=== PATIENT | male | born 1970 | race African-American/Black ===

== ENCOUNTER 2016-12-03 21:04 | Emergency (ER) | payer SELFPAY ==
[~2016-12-03] VITALS: Ht 180.3 cm; Wt 93.4 kg
[2016-12-03] MEDS ORDERED: NAPROSYN500 MG PO (22:42)
[2016-12-03 23:18] VITALS: BP 120/85
== END 2016-12-03 23:18 | disposition home or self-care (01) | DRG 558 ==
LOC: ED 21:04
DX: M70.61 Trochanteric bursitis, right hip (principal); F17.210 Nicotine dependence, cigarettes, uncomplicated; J45.909 Unspecified asthma, uncomplicated

== ENCOUNTER 2017-04-01 08:43 | Emergency (ER) | payer SELFPAY ==
[~2017-04-01] VITALS: Ht 180.3 cm; Wt 80.0 kg
[~2017-04-01 08:43] MED LIST: NAPROSYN500 MG PO
[2017-04-01] MEDS ORDERED: ZITHROMAX250 MG PO (09:30)
[2017-04-01] MEDS ORDERED: VENTOLIN HFA IN (09:30)
[2017-04-01] MEDS ORDERED: MOTRIN800 MG PO (09:30)
[2017-04-01] MEDS ORDERED: PREDNISONE50 MG PO (09:30)
[2017-04-01 09:57] LABS: INFLUENZA A NONE DETECTED (NONE DETECT); INFLUENZA B NONE DETECTED (NONE DETECT)
[2017-04-01 10:14] VITALS: BP 134/56
== END 2017-04-01 10:14 | disposition home or self-care (01) | DRG 203 ==
LOC: ED 08:43
PROVIDERS: Emergency Medicine
DX: J40 Bronchitis, not specified as acute or chronic (principal); M79.1 Myalgia; R05 Cough; R09.81 Nasal congestion; Z72.0 Tobacco use; R50.9 Fever, unspecified; R06.2 Wheezing; R09.89 Other specified symptoms and signs involving the circulatory and respiratory systems

== ENCOUNTER 2018-02-22 12:58 | Emergency (ER) | payer SELFPAY ==
[~2018-02-22] VITALS: Ht 180.3 cm; Wt 93.2 kg
[~2018-02-22 12:58] MED LIST changes: +MOTRIN800 MG PO; +PREDNISONE50 MG PO; +VENTOLIN HFA IN; +ZITHROMAX250 MG PO
[2018-02-22 14:18] LABS: HEMATOCRIT 43.9 % (39.0-50.0); HEMOGLOBIN 15.2 g/dl (14.0-18.0); IMMATURE GRANULOCYTES 0.3 % (0.0-5.0); MEAN CELL VOLUME 74.3 fL CALC (80.0-100.0); MEAN CORPUSCULAR HGB 25.7 pG CALC (26.0-32.0); MEAN CORPUSCULAR HGB CONC 34.6 g/L CALC (32.0-36.0); NEUT# 4.19 thou/uL (1.82-7.42); RED BLOOD COUNT 5.91 mill/uL (4.70-6.10); RED CELL DISTRI WIDTH 13.6 % (11.5-15.5)
[2018-02-22 14:38] LABS: ALBUMIN 4.4 g/dL (3.2-5.0); ALKALINE PHOSPHATASE 46 u/l (38-126); ANION GAP 14 (6-22 (CALC)); BILIRUBIN, TOTAL 0.9 mg/dL (0.0-1.4); BUN 18 mg/dL (9-20); BUN/CREATININE RATIO 14 (12-20 (CALC)); CARBON DIOXIDE 24 mmol/l (22-30); CHLORIDE 105 mmol/l (95-108); CREATININE 1.2 mg/dL (0.7-1.3); GFR > 60 ML/MIN (>=60 (CALC)); GFR FOR AFR.AMER. > 60 ML/MIN (>=60 (CALC)); LIPASE 70 u/l (23-300); POTASSIUM 4.1 mmol/l (3.5-5.1); SGOT/AST 23 u/l (17-59); SODIUM 139 mmol/l (137-146); TOTAL PROTEIN 7.7 g/dL (6.3-8.2)
[2018-02-22] MEDS ORDERED: PROTONIX40 M2 PO (14:49)
[2018-02-22] MEDS ORDERED: ZOFRAN8 MG PO (14:49)
[2018-02-22 15:07] VITALS: BP 160/94
== END 2018-02-22 15:17 | disposition home or self-care (01) | DRG 392 ==
LOC: ED 12:58
PROVIDERS: Emergency Medicine
DX: R10.13 Epigastric pain (principal); R11.2 Nausea with vomiting, unspecified; F17.210 Nicotine dependence, cigarettes, uncomplicated

== ENCOUNTER 2020-01-11 11:09 | Observation (INO) | payer SELFPAY ==
[~2020-01-11] VITALS: Ht 180.3 cm; Wt 84.0 kg
[~2020-01-11 11:09] MED LIST changes: +PROTONIX40 M2 PO; +ZOFRAN8 MG PO
--- NOTE | 2020-01-11 13:04 | NUR ---
PT TO ROOM FOR EXAM
[2020-01-11 13:37] LABS: HEMOGLOBIN 15.9 g/dl (14.0-18.0); IMMATURE GRANULOCYTES 0.4 % (0.0-5.0); MEAN CORPUSCULAR HGB 25.4 pG CALC (26.0-32.0); MEAN CORPUSCULAR HGB CONC 33.8 g/dL CAL (32.0-36.0); NEUT# 3.44 thou/uL (1.82-7.42); RED BLOOD COUNT 6.27 mill/uL (4.70-6.10); RED CELL DISTRI WIDTH 14.1 % (11.5-15.5)
--- NOTE | 2020-01-11 13:44 | NUR ---
PT RESTING QUIETLY ON STRETSCHER, NO COMPLAINTS AT THIS TIME
[2020-01-11 13:55] LABS: ALBUMIN 4.9 g/dL (3.2-5.0); ALKALINE PHOSPHATASE 50 u/l (38-126); ANION GAP 16 (6-22 (CALC)); BUN 17 mg/dL (9-20); BUN/CREATININE RATIO 15 (12-20 (CALC)); CARBON DIOXIDE 22 mmol/l (22-30); CHLORIDE 106 mmol/l (95-108); CREATININE 1.1 mg/dL (0.7-1.3); GFR > 60 ML/MIN (>=60 (CALC)); GFR FOR AFR.AMER. > 60 ML/MIN (>=60 (CALC)); POTASSIUM 4.6 mmol/l (3.5-5.1); SGOT/AST 30 u/l (17-59); SODIUM 139 mmol/l (137-146); TOTAL PROTEIN 8.6 g/dL (6.3-8.2)
--- NOTE | 2020-01-11 15:19 | NUR ---
DENIES ANY CHEST PAIN, SITTING UP IN STRETCHER, WATCHING TV, TALKING ON PHONE, LAUGHING WITH STAFF. IVANNA. NO COUGH HEARD SINCE ARRIVAL
--- NOTE | 2020-01-11 16:50 | NUR ---
NURSE UNAVAILABLE FOR REPORT
--- NOTE | 2020-01-11 17:05 | NUR ---
PT REPORT GIVEN AND PT TAKEN TO FLOOR PER W/C
--- NOTE | 2020-01-11 17:17 | NUR ---
REPORT REC FROM ZIA SOTELO
[2020-01-11 17:23] VITALS: BP 137/83
--- NOTE | 2020-01-11 17:37 | NUR ---
PT ARRIVED VIA WC ACCOMPANIED BY ZIA SOTELO. PT A&O X3. NO DISTRESS NOTED. PT C/O OF SLIGHT CP 08/22. CLEAR BREATH SOUNDS UPON AUSCULTATION. PT REPORTS A SLIGHT COUGH BUT NONE HEARD UPON ADMISSION. ORIENTED PT TO ROOM. VLADIMIR YEH OFFERED BUT REFUSED. ASSESSMENT COMPLETED DISCUSSED POC. CALL LIGHT IN REACH. CONTINUE TO MONITOR.
[2020-01-11 19:50] VITALS: BP 148/98
--- NOTE | 2020-01-11 20:00 | NUR ---
PATIENT RESTING IN BED AT THIS TIME-AWAKE ALERT AND ORIENTEDX3. PATIENT WITH C/O HEADACHE-MEDICATED WITH TYLENOL 650MG PO FOR PAIN. SALINE LOCK TO RAC INTACT AND HEALTHY AT THIS TIME. LOVENOX GIVEN ORDERED. LUNGS ARE CLEAR. ABD IS SOFT WITH BS+. NO PEDAL EDEMA, PULSES ARE PALPABLE. SAFETY PRECAUTIONS REINFORCED. CALL LIGHT IN REACH. WILL CONT TO MONITOR.
[2020-01-11 20:11] VITALS: BP 129/54
[2020-01-11 22:58] VITALS: BP 164/103
--- NOTE | 2020-01-11 22:59 | NUR ---
PATIENT RESTING IN BED C/O CHEST PAIN-7/10 ON PAIN SCALE. STATES NON RADIATING PAIN FOR LAST SEVERAL MINUTES. BP-164/103, HR-60, O2 SATS 97%. CALLED FOR EKG- WILL CONT TO MONITOR.
--- NOTE | 2020-01-12 00:11 | NUR ---
PATIENT RESTING IN BED-STILL WITH LEFT SIDE CHEST PAIN AND HEADACHE. MEDICATED WITH TORADOL 15MG IVP VIA RAC SITE-SITE IS HEALTHY. LAB HERE TO DRAW TROP. CALL LIGHT IN REACH. WILL CONT TO MONITOR.
[2020-01-12 00:20] VITALS: BP 150/81
[2020-01-12 01:11] VITALS: BP 151/95
--- NOTE | 2020-01-12 03:20 | NUR ---
PATIENT APPEARS SLEEPING AT THIS TIME WITH EYES CLOSED. RESPS ARE EVEN AND UNLABORED. TELE MONITOR IN PLACE. CALL LIGHT IN REACH. WILL CONT TO MONITOR.
[2020-01-12 05:02] VITALS: BP 155/88
[2020-01-12 05:47] LABS: HEMATOCRIT 45.7 % (39.0-50.0); HEMOGLOBIN 15.7 g/dl (14.0-18.0); IMMATURE GRANULOCYTES 0.3 % (0.0-5.0); MEAN CELL VOLUME 73.9 fL CALC (80.0-100.0); MEAN CORPUSCULAR HGB 25.4 pG CALC (26.0-32.0); MEAN CORPUSCULAR HGB CONC 34.4 g/dL CAL (32.0-36.0); NEUT# 7.99 thou/uL (1.82-7.42); RED BLOOD COUNT 6.18 mill/uL (4.70-6.10); RED CELL DISTRI WIDTH 14.1 % (11.5-15.5)
[2020-01-12 06:08] LABS: ALBUMIN 4.8 g/dL (3.2-5.0); ALKALINE PHOSPHATASE 49 u/l (38-126); ANION GAP 17 (6-22 (CALC)); BILIRUBIN, TOTAL 0.8 mg/dL (0.0-1.4); BUN 22 mg/dL (9-20); BUN/CREATININE RATIO 20 (12-20 (CALC)); C-REACTIVE PROTEIN < 0.5 mg/dL (0-0.9); CARBON DIOXIDE 22 mmol/l (22-30); CHLORIDE 104 mmol/l (95-108); CREATININE 1.1 mg/dL (0.7-1.3); GFR > 60 ML/MIN (>=60 (CALC)); GFR FOR AFR.AMER. > 60 ML/MIN (>=60 (CALC)); POTASSIUM 4.8 mmol/l (3.5-5.1); SGOT/AST 22 u/l (17-59); SODIUM 137 mmol/l (137-146); TOTAL PROTEIN 8.4 g/dL (6.3-8.2)
--- NOTE | 2020-01-12 07:00 | NUR ---
SHIFT CHANGE REPORT, PT AWAKE ALERT AND ORIENTED RESTING IN BED, NO C/O DISCOMFORT, TELE MONITOR IN PLACE, CALL VALENTINE IN REACH.
[2020-01-12 07:38] VITALS: BP 136/92
[2020-01-12 11:24] VITALS: BP 141/84
[2020-01-12] MEDS ORDERED: MEDDOSEPAK PO (11:37)
[2020-01-12] MEDS ORDERED: ZPAK PO (11:37)
[2020-01-12] MEDS ORDERED: VENTOLIN HFA IN (11:37)
--- NOTE | 2020-01-12 13:09 | NUR ---
Discharge instructions given. Patient verbalizes understanding of same. Discharged in good condition via Ambulatory to Home with family. All belongings sent with pt.
== END 2020-01-12 12:57 | disposition home or self-care (01) | DRG 153 ==
LOC: ED 11:09 → ED-I 14:39 → ED 14:54 → MS2 14:55
PROVIDERS: Family Medicine; Nurse Practitioner; ADMIT Internal Medicine; ATTEND Internal Medicine
DX: J06.9 Acute upper respiratory infection, unspecified (principal); J45.901 Unspecified asthma with (acute) exacerbation; R07.81 Pleurodynia; R00.1 Bradycardia, unspecified; R03.0 Elevated blood-pressure reading, without diagnosis of hypertension; F17.210 Nicotine dependence, cigarettes, uncomplicated; Z20.828 Contact with and (suspected) exposure to other viral communicable diseases
CPT/HCPCS: G0378; J1650

== ENCOUNTER 2020-09-15 19:02 | Emergency (ER) | payer SELFPAY ==
[~2020-09-15] VITALS: Ht 180.3 cm; Wt 89.0 kg
[~2020-09-15 19:02] MED LIST changes: +MEDDOSEPAK PO; +ZPAK PO
[2020-09-15 20:03] VITALS: BP 125/83
== END 2020-09-15 20:11 | disposition home or self-care (01) | DRG 866 ==
LOC: ED 19:02
DX: B34.9 Viral infection, unspecified (principal); J45.909 Unspecified asthma, uncomplicated; F17.210 Nicotine dependence, cigarettes, uncomplicated; Z20.822 Contact with and (suspected) exposure to COVID-19

== ENCOUNTER 2020-12-01 08:24 | Observation (INO) | payer SELFPAY ==
[~2020-12-01] VITALS: Ht 177.8 cm; Wt 79.0 kg
--- NOTE | 2020-12-01 08:30 | NUR ---
TO ROOM FOR TRIAGE BY EMS
[2020-12-01 08:57] LABS: HEMATOCRIT 46.5 % (39.0-50.0); HEMOGLOBIN 15.8 g/dl (14.0-18.0); IMMATURE GRANULOCYTES 0.1 % (0.0-5.0); MEAN CELL VOLUME 75.2 fL CALC (80.0-100.0); MEAN CORPUSCULAR HGB 25.6 pG CALC (26.0-32.0); NEUT# 4.79 thou/uL (1.82-7.42); RED BLOOD COUNT 6.18 mill/uL (4.70-6.10); RED CELL DISTRI WIDTH 13.7 % (11.5-15.5)
[2020-12-01 09:10] LABS: ALBUMIN 4.7 g/dL (3.2-5.0); ALKALINE PHOSPHATASE 40 u/l (38-126); AMYLASE 275 u/l (30-110); ANION GAP 16 (6-22 (CALC)); BUN 19 mg/dL (9-20); BUN/CREATININE RATIO 16 (12-20 (CALC)); CARBON DIOXIDE 26 mmol/l (22-30); CHLORIDE 99 mmol/l (95-108); CREATININE 1.2 mg/dL (0.7-1.3); GFR > 60 ML/MIN (>=60 (CALC)); GFR FOR AFR.AMER. > 60 ML/MIN (>=60 (CALC)); LIPASE 915 u/l (23-300); POTASSIUM 4.1 mmol/l (3.5-5.1); SGOT/AST 24 u/l (17-59); SODIUM 137 mmol/l (137-146); TOTAL PROTEIN 8.3 g/dL (6.3-8.2)
[2020-12-01 09:11] LABS: BILIRUBIN, TOTAL 1.3 mg/dL (0.0-1.4)
--- NOTE | 2020-12-01 11:02 | NUR ---
MD WILBURN AT BEDSIDE
[2020-12-01 11:07] LABS: CHOLESTEROL HDL RATIO 5.7 (<4.4 (CALC))
--- NOTE | 2020-12-01 11:30 | NUR ---
Reassessment of patient completed. No distress noted.
--- NOTE | 2020-12-01 11:51 | NUR ---
REPORTED GIVEN TO KANWAL SOTELO [facility] FLOOR
--- NOTE | 2020-12-01 12:17 | NUR ---
PATIENT CAME FROM ER VIA WHEELCHAIR.
[2020-12-01 12:31] VITALS: BP 166/96
--- NOTE | 2020-12-01 12:48 | NUR ---
ASSESSMENT DONE. PATIENT IS ALERT AND ORIENT X3. PATIENT STATED PAIN IN ABD. MEDICATED PATIENT WITH TYLENOL. PO FLUIDS PROVIDED. RESPS EVEN AND UNLABORED. IVF INFUSING WELL. SKIN INTACT. SAFETY PRECAUTIONS REINFORCED .PATIENT DENIES ANY OTHER NEEDS AT THIS TIME. CALL LIGHT IN REACH.
[2020-12-01 15:16] VITALS: BP 148/90
--- NOTE | 2020-12-01 16:00 | NUR ---
PATIENT IS RESTING IN BED WITH NO DISTRESS NOTED. PATIENT DENIES NEEDS AT THIS TIME. CALL LIGHT IN REACH.
--- NOTE | 2020-12-01 20:05 | NUR ---
PHYSICAL ASSESMENT COMPLETE. PT CURRENTLY DENIES PAIN OR DISCOMFORT. SCHEDULED MEDICATIONS AND PRN MEDICATION ADMINISTERED, SEE E-MAR. PT DENIES ANY NEEDS AT THIS TIME. PLAN OF CARE REVIEWED, PT DENIES QUESTIONS, VERBALIZES UNDERSTANDING. ITEMS WITHIN REACH, BED LOCKED IN LOW POSITION W/ BEDRAILS UP X2. CALL VALENTINE WITHIN REACH, AGREES TO CALL PRN.
[2020-12-01 20:53] VITALS: BP 148/90
--- NOTE | 2020-12-02 00:58 | NUR ---
PT LAYING IN BED WITH EYES CLOSED, APPEARS TO BE SLEEPING, APPEARS COMFORTABLE AND IN NO DISTRESS. RESPIRATIONS REGULAR AND UNLABORED. ITEMS REMAIN WITHIN REACH, CALL VALENTINE REMAINS WITHIN REACH. BED REMAINS LOCKED AND IN LOW POSITION WITH BEDRAILS UP X2. WILL CONTINUE TO MONITOR.
--- NOTE | 2020-12-02 04:10 | NUR ---
PT RESTING IN BED, NO SIGNS OF DISTRESS NOTED, RESP EVEN AND UNLABORED. PT VOICES NO NEEDS OR COMPLAINTS AT THIS TIME. CALL LIGHT IN REACH, CONTINUE TO MONITOR.
[2020-12-02 04:37] VITALS: BP 147/95
[2020-12-02 05:21] LABS: URINE BILIRUBIN - DIPSTICK NEGATIVE (NEGATIVE); URINE BLOOD DIPSTICK NEGATIVE (NEGATIVE); URINE COLOR YELLOW; URINE GLUCOSE - DIPSTICK NEGATIVE (NEGATIVE); URINE KETONE 15 mg/dL (NEGATIVE); URINE LEUK ESTERASE NEGATIVE (NEGATIVE); URINE PROTEIN - DIPSTICK NEGATIVE (NEG-TRACE); URINE SPECIFIC GRAVITY 1.025; URINE UROBILINOGEN - DIPSTICK 0.2 E.U./dL (0.2)
[2020-12-02 05:24] LABS: URINE NITRITE - DIPSTICK NEGATIVE (Negative)
[2020-12-02 05:36] LABS: HEMATOCRIT 43.4 % (39.0-50.0); HEMOGLOBIN 14.7 g/dl (14.0-18.0); MEAN CELL VOLUME 75.9 fL CALC (80.0-100.0); MEAN CORPUSCULAR HGB 25.7 pG CALC (26.0-32.0); MEAN CORPUSCULAR HGB CONC 33.9 g/dL CAL (32.0-36.0); RED BLOOD COUNT 5.72 mill/uL (4.70-6.10); RED CELL DISTRI WIDTH 13.4 % (11.5-15.5)
[2020-12-02 05:47] LABS: ANION GAP 13 (6-22 (CALC)); BUN 16 mg/dL (9-20); BUN/CREATININE RATIO 14 (12-20 (CALC)); CARBON DIOXIDE 24 mmol/l (22-30); CHLORIDE 102 mmol/l (95-108); CREATININE 1.1 mg/dL (0.7-1.3); GFR > 60 ML/MIN (>=60 (CALC)); GFR FOR AFR.AMER. > 60 ML/MIN (>=60 (CALC)); MAGNESIUM 2.1 mg/dL (1.6-2.3); SODIUM 135 mmol/l (137-146)
--- NOTE | 2020-12-02 07:10 | NUR ---
BEDSIDE REPORT RECEIVED, PT LYING IN BED ASLEEP WILL MONITOR
[2020-12-02 09:00] VITALS: BP 149/89
[2020-12-02 11:17] VITALS: BP 124/76
[2020-12-02 11:20] VITALS: BP 124/76
[2020-12-02 14:50] VITALS: BP 152/89
[2020-12-02 19:00] VITALS: BP 149/87
--- NOTE | 2020-12-02 19:54 | NUR ---
PT ASSESSED AND MEDICATED ORDERS PROVIDE FOR PAIN 6/10 ON PAIN SCALE. PT ASKED FOR A SANDWICH, I EXPLAINED THAT WE ARE TREATING HIS CONDITION WITH CLEAR LIQUID DIET PART OF THE TREATMENT, VERBALIZED UNDERSTANDING. OFFERED BROTH OR OTHER LIQUIDS, DENIED. I ENCOURAGED HIM TO CALL NEEDS ARISE, AGREED, CALL LIGHT W/IN REACH.
--- NOTE | 2020-12-02 23:50 | NUR ---
Pt sleeping, no s/o distresses, resp even and non-labored. Pt did not awake to my entering the room.
--- NOTE | 2020-12-03 02:10 | NUR ---
PT IS SLEEPING, RESP EVEN AND NON-LABORED, NO S/O DISTRESS NOTED.
[2020-12-03 04:00] VITALS: BP 168/92
--- NOTE | 2020-12-03 04:32 | NUR ---
LAB WAS JUST IN WITH PT AND V/S OBTAINED BY KARRI. IVF REPLENISHED AT THIS TIME. LIGHTS ARE TURNED BACK DOWN AND PT RETURNING TO SLEEP. DENIES ANY OTHER NEEDS AT THIS TIME. CALL LIGHT AT SIDE.
--- NOTE | 2020-12-03 04:54 | NUR ---
PT BP ELEVATED, MEDICATED FOR PAIN. WILL REASSESS FOR RESPONSE.
[2020-12-03 06:00] VITALS: BP 148/84
[2020-12-03 06:06] LABS: HEMATOCRIT 43.4 % (39.0-50.0); MEAN CELL VOLUME 74.8 fL CALC (80.0-100.0); MEAN CORPUSCULAR HGB 25.9 pG CALC (26.0-32.0); MEAN CORPUSCULAR HGB CONC 34.6 g/dL CAL (32.0-36.0); RED BLOOD COUNT 5.8 mill/uL (4.70-6.10)
[2020-12-03 06:12] LABS: ANION GAP 10 (6-22 (CALC)); BUN 12 mg/dL (9-20); BUN/CREATININE RATIO 11 (12-20 (CALC)); CARBON DIOXIDE 24 mmol/l (22-30); CHLORIDE 104 mmol/l (95-108); CREATININE 1.1 mg/dL (0.7-1.3); GFR > 60 ML/MIN (>=60 (CALC)); GFR FOR AFR.AMER. > 60 ML/MIN (>=60 (CALC)); LIPASE 415 u/l (23-300); POTASSIUM 3.9 mmol/l (3.5-5.1); SODIUM 134 mmol/l (137-146)
--- NOTE | 2020-12-03 07:00 | NUR ---
BEDSIDE REPORT RECEIVED, PT ASLEEP. WILL MONITOR.
--- NOTE | 2020-12-03 08:28 | NUR ---
PRELIM BLOOD CX SHOWS GRAM POSITIVE COCCI IN 2/4, DIFF SETS. REPORTED TO JOVITA. LIKELY CONTAMINANT, PT IS NOT HERE FOR ANYTHING INFECTIOUS, NO NEW ORDERS, WILL F/U WITH FINAL RESULTS
[2020-12-03 09:00] VITALS: BP 147/89
[2020-12-03] MEDS ORDERED: ZOFRAN4 MG/TAB PO (11:47)
[2020-12-03] MEDS ORDERED: ULTRAM50 M1 PO (11:48)
[2020-12-03] MEDS ORDERED: PROTONIX40 M2 PO (12:13)
--- NOTE | 2020-12-03 13:14 | NUR ---
Discharge instructions given. Patient verbalizes understanding of same. Discharged in stable condition via Wheelchair to Home with family. All belongings sent with pt.
--- NOTE | 2020-12-04 09:20 | NUR ---
FINAL BLOOD CX SHOWS STAPH CAPITIS IN 03/18, CONTAMINANT. REPORTED TO JOVITA.
== END 2020-12-03 13:09 | disposition home or self-care (01) | DRG 440 ==
LOC: ED 08:24 → ED-I 10:20 → ED 10:50 → MS2 10:51
PROVIDERS: Nurse Practitioner; ADMIT Hospitalist; ATTEND Hospitalist
DX: K85.90 Acute pancreatitis without necrosis or infection, unspecified (principal); J45.909 Unspecified asthma, uncomplicated; F17.200 Nicotine dependence, unspecified, uncomplicated; Z20.822 Contact with and (suspected) exposure to COVID-19
CPT/HCPCS: G0378; Q9967

== ENCOUNTER 2021-01-20 10:37 | Emergency (ER) | payer SELFPAY ==
[~2021-01-20] VITALS: Ht 177.8 cm; Wt 98.0 kg
[~2021-01-20 10:37] MED LIST changes: +ULTRAM50 M1 PO; +ZOFRAN4 MG/TAB PO
[2021-01-20 11:17] LABS: HEMATOCRIT 45.1 % (39.0-50.0); HEMOGLOBIN 15.1 g/dl (14.0-18.0); IMMATURE GRANULOCYTES 0.3 % (0.0-5.0); MEAN CELL VOLUME 76.3 fL CALC (80.0-100.0); MEAN CORPUSCULAR HGB 25.5 pG CALC (26.0-32.0); MEAN CORPUSCULAR HGB CONC 33.5 g/dL CAL (32.0-36.0); NEUT# 3.35 thou/uL (1.82-7.42); RED BLOOD COUNT 5.91 mill/uL (4.70-6.10); RED CELL DISTRI WIDTH 14.2 % (11.5-15.5)
[2021-01-20 11:33] LABS: ALBUMIN 4.5 g/dL (3.2-5.0); ALKALINE PHOSPHATASE 41 u/l (38-126); BUN 11 mg/dL (9-20); BUN/CREATININE RATIO 9 (12-20 (CALC)); CARBON DIOXIDE 24 mmol/l (22-30); CHLORIDE 107 mmol/l (95-108); CREATININE 1.2 mg/dL (0.7-1.3); GFR > 60 ML/MIN (>=60 (CALC)); GFR FOR AFR.AMER. > 60 ML/MIN (>=60 (CALC)); POTASSIUM 4.4 mmol/l (3.5-5.1); SGOT/AST 20 u/l (17-59); TOTAL PROTEIN 7.7 g/dL (6.3-8.2)
[2021-01-20 11:37] LABS: ANION GAP 14 (6-22 (CALC)); SODIUM 141 mmol/l (137-146)
[2021-01-20 11:45] LABS: MYOGLOBIN 41 ng/mL (0 - 121)
[2021-01-20 13:13] LABS: URINE BILIRUBIN - DIPSTICK NEGATIVE (NEGATIVE); URINE BLOOD DIPSTICK NEGATIVE (NEGATIVE); URINE COLOR YELLOW; URINE GLUCOSE - DIPSTICK NEGATIVE (NEGATIVE); URINE KETONE NEGATIVE (NEGATIVE); URINE LEUK ESTERASE NEGATIVE (NEGATIVE); URINE PH 6.5 (4.5-8.0); URINE PROTEIN - DIPSTICK NEGATIVE (NEG-TRACE); URINE SPECIFIC GRAVITY 1.025; URINE UROBILINOGEN - DIPSTICK 0.2 E.U./dL (0.2)
[2021-01-20 13:15] LABS: URINE NITRITE - DIPSTICK NEGATIVE (Negative)
[2021-01-20] MEDS ORDERED: KEFLEX500 MG PO (14:28)
[2021-01-20] MEDS ORDERED: MEDDOSEPAK PO (14:28)
[2021-01-20 14:50] VITALS: BP 133/87
== END 2021-01-20 14:52 | disposition home or self-care (01) | DRG 203 ==
LOC: ED 10:37
PROVIDERS: Emergency Medicine
DX: J45.901 Unspecified asthma with (acute) exacerbation (principal); I10 Essential (primary) hypertension; F17.210 Nicotine dependence, cigarettes, uncomplicated; Z20.822 Contact with and (suspected) exposure to COVID-19

== ENCOUNTER 2021-02-11 11:12 | Emergency (ER) | payer SELFPAY ==
[~2021-02-11] VITALS: Ht 177.8 cm; Wt 88.6 kg
[~2021-02-11 11:12] MED LIST changes: +KEFLEX500 MG PO
[2021-02-11 12:09] LABS: HEMATOCRIT 45.9 % (39.0-50.0); HEMOGLOBIN 15.5 g/dl (14.0-18.0); IMMATURE GRANULOCYTES 0.1 % (0.0-5.0); MEAN CELL VOLUME 75.2 fL CALC (80.0-100.0); MEAN CORPUSCULAR HGB 25.4 pG CALC (26.0-32.0); MEAN CORPUSCULAR HGB CONC 33.8 g/dL CAL (32.0-36.0); NEUT# 3.5 thou/uL (1.82-7.42); RED BLOOD COUNT 6.1 mill/uL (4.70-6.10); RED CELL DISTRI WIDTH 13.9 % (11.5-15.5)
[2021-02-11 12:49] LABS: ALBUMIN 4.4 g/dL (3.2-5.0); ALKALINE PHOSPHATASE 52 u/l (38-126); ANION GAP 14 (6-22 (CALC)); BILIRUBIN, TOTAL 0.8 mg/dL (0.0-1.4); BUN 16 mg/dL (9-20); BUN/CREATININE RATIO 14 (12-20 (CALC)); CARBON DIOXIDE 24 mmol/l (22-30); CHLORIDE 107 mmol/l (95-108); CREATININE 1.1 mg/dL (0.7-1.3); GFR > 60 ML/MIN (>=60 (CALC)); GFR FOR AFR.AMER. > 60 ML/MIN (>=60 (CALC)); POTASSIUM 4.5 mmol/l (3.5-5.1); SGOT/AST 24 u/l (17-59); SODIUM 141 mmol/l (137-146); TOTAL PROTEIN 7.8 g/dL (6.3-8.2)
[2021-02-11] MEDS ORDERED: ZPAK PO (14:27)
[2021-02-11] MEDS ORDERED: PROAIR HFA108 MCG/AC PO (14:27)
[2021-02-11] MEDS ORDERED: PREDNISONE50 MG PO (14:27)
[2021-02-11 14:40] VITALS: BP 132/77
== END 2021-02-11 14:40 | disposition home or self-care (01) | DRG 203 ==
LOC: ED 11:12
PROVIDERS: Family Medicine
DX: J45.901 Unspecified asthma with (acute) exacerbation (principal); I10 Essential (primary) hypertension; F17.210 Nicotine dependence, cigarettes, uncomplicated; Z20.822 Contact with and (suspected) exposure to COVID-19
CPT/HCPCS: J3475

== ENCOUNTER 2021-05-02 07:16 | Emergency (ER) | payer OTHER ==
[~2021-05-02] VITALS: Ht 177.8 cm; Wt 88.6 kg
[~2021-05-02 07:16] MED LIST changes: +PROAIR HFA108 MCG/AC PO
[2021-05-02 07:23] VITALS: BP 147/98
[2021-05-02 07:30] VITALS: BP 170/115
[2021-05-02 07:45] VITALS: BP 164/93
[2021-05-02 08:00] LABS: ALBUMIN 4.3 g/dL (3.2-5.0); ALKALINE PHOSPHATASE 44 u/l (38-126); ANION GAP 16 (6-22 (CALC)); BILIRUBIN, TOTAL 0.5 mg/dL (0.0-1.4); BUN 14 mg/dL (9-20); BUN/CREATININE RATIO 16 (12-20 (CALC)); CARBON DIOXIDE 24 mmol/l (22-30); CHLORIDE 102 mmol/l (95-108); CREATININE 0.9 mg/dL (0.7-1.3); GFR > 60 ML/MIN (>=60 (CALC)); GFR FOR AFR.AMER. > 60 ML/MIN (>=60 (CALC)); LIPASE 37 u/l (23-300); POTASSIUM 4.4 mmol/l (3.5-5.1); SGOT/AST 26 u/l (17-59); SODIUM 137 mmol/l (137-146); TOTAL PROTEIN 7.4 g/dL (6.3-8.2)
[2021-05-02 08:07] LABS: HEMATOCRIT 41.5 % (39.0-50.0); HEMOGLOBIN 14.3 g/dl (14.0-18.0); IMMATURE GRANULOCYTES 0.2 % (0.0-5.0); MEAN CELL VOLUME 75.9 fL CALC (80.0-100.0); MEAN CORPUSCULAR HGB 26.1 pG CALC (26.0-32.0); MEAN CORPUSCULAR HGB CONC 34.5 g/dL CAL (32.0-36.0); NEUT# 3.73 thou/uL (1.82-7.42); RED BLOOD COUNT 5.47 mill/uL (4.70-6.10); RED CELL DISTRI WIDTH 13.3 % (11.5-15.5)
[2021-05-02 08:23] VITALS: BP 153/92
[2021-05-02 08:30] VITALS: BP 150/92
[2021-05-02 09:56] LABS: URINE BILIRUBIN - DIPSTICK NEGATIVE (NEGATIVE); URINE BLOOD DIPSTICK NEGATIVE (NEGATIVE); URINE COLOR YELLOW; URINE GLUCOSE - DIPSTICK NEGATIVE (NEGATIVE); URINE KETONE 40 mg/dL (NEGATIVE); URINE LEUK ESTERASE NEGATIVE (NEGATIVE); URINE PH 6.5 (4.5-8.0); URINE PROTEIN - DIPSTICK NEGATIVE (NEG-TRACE)
[2021-05-02 09:58] LABS: URINE NITRITE - DIPSTICK NEGATIVE (Negative)
[2021-05-02] MEDS ORDERED: ONDANSETRON4 MG PO (12:57)
[2021-05-02 15:06] LABS: TSH, 3RD GENERATION 1.52 uIU/mL (0.47 - 4.68)
[2021-05-02 15:24] VITALS: BP 154/94
== END 2021-05-02 15:49 | disposition home or self-care (01) | DRG 179 ==
LOC: ED 07:16
PROVIDERS: Family Medicine
DX: U07.1 COVID-19 (principal); R11.2 Nausea with vomiting, unspecified; R19.7 Diarrhea, unspecified; R10.13 Epigastric pain; R10.11 Right upper quadrant pain; I10 Essential (primary) hypertension; J45.909 Unspecified asthma, uncomplicated; F17.200 Nicotine dependence, unspecified, uncomplicated
CPT/HCPCS: Q9967

== ENCOUNTER 2021-11-09 14:17 | Emergency (ER) | payer SELFPAY ==
[~2021-11-09] VITALS: Ht 177.8 cm; Wt 86.4 kg
[2021-11-09] VITALS (15 sets, daily range): BP systolic 123–161; BP diastolic 91–106
[~2021-11-09 14:17] MED LIST changes: +ONDANSETRON4 MG PO
[2021-11-09 14:55] LABS: HEMATOCRIT 42.4 % (39.0-50.0); HEMOGLOBIN 14.7 g/dl (14.0-18.0); IMMATURE GRANULOCYTES 0.2 % (0.0-5.0); MEAN CELL VOLUME 73.2 fL CALC (80.0-100.0); MEAN CORPUSCULAR HGB 25.4 pG CALC (26.0-32.0); MEAN CORPUSCULAR HGB CONC 34.7 g/dL CAL (32.0-36.0); NEUT# 3.09 thou/uL (1.82-7.42); RED BLOOD COUNT 5.79 mill/uL (4.70-6.10); RED CELL DISTRI WIDTH 13.6 % (11.5-15.5)
[2021-11-09 15:05] LABS: GFR FOR AFR.AMER. > 60 ML/MIN (>=60 (CALC)); GFR OTHER RACES 58 ML/MIN (>=60 (CALC))
[2021-11-09 15:14] LABS: ALBUMIN 4.5 g/dL (3.2-5.0); ALKALINE PHOSPHATASE 42 u/l (38-126); ANION GAP 14 (6-22 (CALC)); BUN 23 mg/dL (9-20); BUN/CREATININE RATIO 20 (12-20 (CALC)); CARBON DIOXIDE 26 mmol/l (22-30); CHLORIDE 104 mmol/l (95-108); CREATININE 1.2 mg/dL (0.7-1.3); GFR FOR AFR.AMER. > 60 ML/MIN (>=60 (CALC)); GFR OTHER RACES > 60 ML/MIN (>=60 (CALC)); LIPASE 130 u/l (23-300); POTASSIUM 4.4 mmol/l (3.5-5.1); SGOT/AST 29 u/l (17-59); SODIUM 140 mmol/l (137-146); TOTAL PROTEIN 7.6 g/dL (6.3-8.2)
[2021-11-09 15:16] LABS: BILIRUBIN, TOTAL 0.8 mg/dL (0.0-1.4)
[2021-11-09 16:28] LABS: URINE BILIRUBIN - DIPSTICK NEGATIVE (NEGATIVE); URINE BLOOD DIPSTICK TRACE-LYSED (NEGATIVE); URINE COLOR YELLOW; URINE GLUCOSE - DIPSTICK NEGATIVE (NEGATIVE); URINE KETONE NEGATIVE (NEGATIVE); URINE LEUK ESTERASE NEGATIVE (NEGATIVE); URINE PH 5.5 (4.5-8.0); URINE PROTEIN - DIPSTICK NEGATIVE (NEG-TRACE); URINE SPECIFIC GRAVITY 1.025; URINE UROBILINOGEN - DIPSTICK 0.2 E.U./dL (0.2)
[2021-11-09 16:30] LABS: URINE NITRITE - DIPSTICK NEGATIVE (Negative)
[2021-11-09] MEDS ORDERED: OMEPRAZOLE DR40 MG PO (16:48)
[2021-11-09] MEDS ORDERED: ZOFRAN4 MG/TAB PO (16:50)
== END 2021-11-09 18:23 | disposition home or self-care (01) | DRG 392 ==
LOC: ED 14:17
PROVIDERS: Family Medicine
DX: R10.13 Epigastric pain (principal); I10 Essential (primary) hypertension; J45.909 Unspecified asthma, uncomplicated; F17.210 Nicotine dependence, cigarettes, uncomplicated
CPT/HCPCS: Q9967

== ENCOUNTER 2022-02-09 09:27 | Emergency (ER) | payer SELFPAY ==
[2022-02-09] VITALS (13 sets, daily range): BP systolic 139–187; BP diastolic 82–109
[~2022-02-09] VITALS: Ht 177.8 cm; Wt 86.1 kg
[~2022-02-09 09:27] MED LIST changes: +OMEPRAZOLE DR40 MG PO
[2022-02-09 10:36] LABS: URINE BLOOD DIPSTICK NEGATIVE (NEGATIVE); URINE COLOR YELLOW; URINE GLUCOSE - DIPSTICK NEGATIVE (NEGATIVE); URINE KETONE 15 mg/dL (NEGATIVE); URINE LEUK ESTERASE NEGATIVE (NEGATIVE); URINE PROTEIN - DIPSTICK 30 mg/dL (NEG-TRACE); URINE SPECIFIC GRAVITY >=1.030; URINE UROBILINOGEN - DIPSTICK 0.2 E.U./dL (0.2)
[2022-02-09 10:37] LABS: HEMATOCRIT 46.9 % (39.0-50.0); HEMOGLOBIN 16.3 g/dl (14.0-18.0); IMMATURE GRANULOCYTES 0.1 % (0.0-5.0); MEAN CELL VOLUME 74.6 fL CALC (80.0-100.0); MEAN CORPUSCULAR HGB 25.9 pG CALC (26.0-32.0); MEAN CORPUSCULAR HGB CONC 34.8 g/dL CAL (32.0-36.0); NEUT# 5.52 thou/uL (1.82-7.42); RED BLOOD COUNT 6.29 mill/uL (4.70-6.10); RED CELL DISTRI WIDTH 14.2 % (11.5-15.5)
[2022-02-09 10:40] LABS: URINE BILIRUBIN - DIPSTICK SMALL (NEGATIVE)
[2022-02-09 10:41] LABS: URINE NITRITE - DIPSTICK NEGATIVE (Negative)
[2022-02-09 10:47] LABS: URINE RBC 0-2 RBC/hpf (0-5)
[2022-02-09 10:48] LABS: ALBUMIN 5.2 g/dL (3.2-5.0); ALKALINE PHOSPHATASE 49 u/l (38-126); ANION GAP 17 (6-22 (CALC)); BILIRUBIN, TOTAL 0.8 mg/dL (0.0-1.4); BUN 18 mg/dL (9-20); BUN/CREATININE RATIO 16 (12-20 (CALC)); CARBON DIOXIDE 30 mmol/l (22-30); CHLORIDE 99 mmol/l (95-108); CREATININE 1.1 mg/dL (0.7-1.3); GFR FOR AFR.AMER. > 60 ML/MIN (>=60 (CALC)); GFR OTHER RACES > 60 ML/MIN (>=60 (CALC)); POTASSIUM 4.3 mmol/l (3.5-5.1); SGOT/AST 26 u/l (17-59); SODIUM 143 mmol/l (137-146); TOTAL PROTEIN 9.1 g/dL (6.3-8.2); URINE SQUAMOUS EPITHELIAL CELL RARE EPI/hpf (0-FEW); URINE WBC 0-2 WBC/hpf (0-5)
[2022-02-09 11:15] LABS: LIPASE 205 u/l (23-300)
[2022-02-09] MEDS ORDERED: ZOFRAN4 MG/TAB PO (13:19)
== END 2022-02-09 14:30 | disposition home or self-care (01) | DRG 392 ==
LOC: ED 09:27
PROVIDERS: Family Medicine
DX: R11.2 Nausea with vomiting, unspecified (principal)